=== PATIENT | female | born 1965 | race Caucasian/White ===

== ENCOUNTER 2018-02-25 08:05 | Day surgery (SDC) | payer BC ==
[2018-02-24 12:38] LABS: BASOPHILS % (AUTO) 0.9 % (0.0-2.0); EOSINOPHILS # (AUTO) 0.1 K/uL (0.0-0.4); HEMATOCRIT 39.4 % (36-48); HEMOGLOBIN 12.9 g/dL (12.0-16.0); LYMPHOCYTES # (AUTO) 1.9 K/uL (1.0-5.5); LYMPHOCYTES % (AUTO) 37.2 % (20.5-51.5); MEAN CORPUSCULAR HEMOGLOBIN 28 pg (27-31); MEAN CORPUSCULAR HGB CONC 33 % (32-36); MEAN CORPUSCULAR VOLUME 85 fL (79.0-98.0); MONOCYTES # (AUTO) 0.5 K/uL (0.0-1.0); MONOCYTES % (AUTO) 10.2 % (1.7-9.3); NEUTROPHILS # (AUTO) 2.6 K/uL (1.8-7.7); NEUTROPHILS % (AUTO) 49.7 % (40.0-70.0); PLATELET COUNT (AUTO) 252 K/uL (130-430); RED BLOOD CELL COUNT(AUTO) 4.61 MIL/uL (4.2-6.2); RED CELL DISTRIBUTION WIDTH 13.2 % (9.0-15.0); WHITE BLOOD COUNT (AUTO) 5.1 K/uL (4.8-10.8)
[2018-02-24 12:40] LABS: BILIRUBIN,URINE NEGATIVE (NEGATIVE); BLOOD, URINE 1+ (NEGATIVE); CLARITY/URINE CLEAR (CLEAR); COLOR,URINE YELLOW (YELLOW); GLUCOSE,URINE NEGATIVE (NEGATIVE); KETONES,URINE NEGATIVE (NEGATIVE); LEUKOCYTE ESTERASE ,URINE 2+ (NEGATIVE); NITRITE, URINE NEGATIVE (NEGATIVE); PROTEIN URINE NEGATIVE (NEGATIVE); UROBILINOGEN,URINE 0.2 (0.2-1.0)
[2018-02-24 12:41] LABS: PROTHROMBIN TIME 10.3 SECS (9.5-12.5)
[2018-02-24 12:44] LABS: CALCIUM 9.6 mg/dL (8.4-11.0); CREATININE 0.73 mg/dL (0.55-1.30); POTASSIUM 3.8 mmol/L (3.5-5.1)
[2018-02-24 13:15] LABS: BACTERIA,URINE MODERATE /HPF (None Seen); MUCUS,URINE None Seen /LPF (None Seen); YEAST,URINE None Seen /HPF (None Seen)
[~2018-02-25] VITALS: Ht 160 cm; Wt 59.0 kg
[~2018-02-25 08:05] MED LIST: CEFAZOLIN SOD 2 GM in D5W 50 ML IV ONE
[2018-02-25] MEDS ORDERED: CEFAZOLIN 2 GM IVPB PREMIX 50 ML IV ONE (09:00)
[2018-02-25] MEDS ORDERED: PROPOFOL 200MG/ 20ML VIAL (DIPRIVAN) IV ONE (10:05)
[2018-02-25] MEDS ORDERED: fentaNYL CITRATE/PF 100 MCG/2 ML AMP IVP ONE (10:05)
[2018-02-25] MEDS ORDERED: ROCURONIUM BROMIDE 10 MG/ML (ZEMURON) IV ONE (10:05)
[2018-02-25] MEDS ORDERED: SEVOFLURANE 15 MIN GAS INH ONE (10:05)
[2018-02-25] MEDS ORDERED: NS IRRIG SOLN 5000 ML IR ONE (10:05)
[2018-02-25] MEDS ORDERED: LR 1,000 ML IV.SOLN IV ONE (10:05)
[2018-02-25] MEDS ORDERED: MIDAZOLAM HCL 5 MG/5 ML VIAL IVP ONE (10:05)
[2018-02-25] MEDS ORDERED: PHENYLEPHRINE HCL 10 MG/ML VIAL (NEOSYNEPHRINE) IV ONE (10:20)
[2018-02-25] MEDS ORDERED: PROMETHAZINE HCL 25 MG/ML AMP IM PRN (11:00)
[2018-02-25] MEDS ORDERED: HYDROcodone/ACETAMIN 5-325 MG TAB (NORCO/ VICODIN) PO PRN ×2 (11:00)
[2018-02-25] MEDS ORDERED: MEPERIDINE HCL/PF 50 MG/ML AMP IVP ONE (11:35)
[2018-02-25] MEDS ORDERED: MEPERIDINE HCL/PF 50 MG/ML AMP ONE (11:41)
[2018-02-25] MEDS ORDERED: MEPERIDINE HCL/PF 50 MG/ML AMP IVP PRN (11:45)
[2018-02-25 12:20] VITALS: BP_SYST 99
== END 2018-02-25 13:02 | disposition home or self-care (01) ==
LOC: SDS 08:05 → SMU 08:07 → EDBD 08:30 → SDS 13:02
PROVIDERS: ATTEND Obstetrics & Gynecology Gynecology
DX: N71.1 Chronic inflammatory disease of uterus (principal); N88.2 Stricture and stenosis of cervix uteri; K21.9 Gastro-esophageal reflux disease without esophagitis; K58.9 Irritable bowel syndrome, unspecified; Z79.899 Other long term (current) drug therapy; Z98.890 Other specified postprocedural states; Z82.49 Family history of ischemic heart disease and other diseases of the circulatory system
CPT/HCPCS: 36415; 58558; 71046; 80048; 81000; 85025; 85610; 85730; 87086; 88305; 93005; J0690; J2175; J2250; J2370; J2704; J3010; J7120; J7060